=== PATIENT | female | born 1945 | race Caucasian/White ===

== ENCOUNTER 2017-08-20 14:35 | Emergency (ER) | payer OTHER ==
[~2017-08-20] VITALS: Ht 167.6 cm; Wt 67.6 kg
--- NOTE | 2017-08-20 15:59 | Diagnostic Imaging Report ---
PROCEDURE:X-RAY PELVIS, AP VIEW COMPARISON:None. INDICATIONS:FALL FINDINGS: Mild osteopenia. No acute, displaced fracture or dislocation. Evaluation of the femoral necks is limited due to positioning. Mild degenerative changes in bilateral hip and sacroiliac joints. Orthopedic hardware is partially visualized in the distal lumbar spine. Nonobstructive bowel gas pattern. Metallic clips project over the sacrum. CONCLUSION: 1. Evaluation of the femoral necks is limited due to positioning. No acute, displaced fracture or dislocation, within the limitations of the study.. Hans Nicholas M.D. Dictated by: Hans Nicholas M.D. on 08/20/2017 at 16:07 Electronically approved by: Hans Nicholas M.D. on 08/20/2017 at 16:07
--- NOTE | 2017-08-20 16:17 | Diagnostic Imaging Report ---
PROCEDURE:X-RAY LEFT HUMERUS, TWO OR MORE VIEWS COMPARISON:None. INDICATIONS:FALL, LEFT ARM PAIN FINDINGS: Acute, comminuted (at least 3 part) fracture of the proximal left humerus involving the surgical neck and likely the greater tuberosity. There is marked inferior subluxation of the humeral head, likely secondary to large effusion/hemarthrosis. No other acute, displaced fractures. Degenerative changes in the acromioclavicular joint. 1.0 cm calcified granuloma in the left upper lung. CONCLUSION: 1. Acute, comminuted (at least 3 part) fracture of the proximal left humerus involving the surgical neck and likely the greater tuberosity, with marked inferior subluxation of the humeral head, likely secondary to large effusion/hemarthrosis. Hans Nicholas M.D. Dictated by: Hans Nicholas M.D. on 08/20/2017 at 16:26 Electronically approved by: Hans Nicholas M.D. on 08/20/2017 at 16:26
[2017-08-20] MEDS ORDERED: MELOXICAM7.5 MG PO (19:40)
[2017-08-20] MEDS ORDERED: FENOFIBRATE145 MG PO (19:40)
[2017-08-20] MEDS ORDERED: HYDROCHLOROTHIA25 MG (19:40)
[2017-08-20] MEDS ORDERED: GLIMEPIRIDE2 MG PO (19:40)
[2017-08-20] MEDS ORDERED: ARICEPT5 MG PO (19:40)
[2017-08-20] MEDS ORDERED: ULTRAM 50MG50 MG PO (19:40)
[2017-08-20] MEDS ORDERED: ALLOPURINOL300 MG PO (19:40)
--- NOTE | 2017-08-20 19:48 | Diagnostic Imaging Report ---
History: Fall yesterday Comparison studies: None Technique: Axial images were obtained from the skull base to the vertex. Coronal and sagittal reconstructions obtained from the axial data. Findings: Scalp/skull: No abnormalities. No fractures, blastic or lytic lesions. Extra-axial spaces: No masses. No fluid collections. Brain sulci: Mildly prominent. Ventricles: Mild compensatory dilatation. No hydrocephalus. Parenchyma: Right posterior limb internal capsule/thalamus chronic lacunar infarct. Periventricular white matter hypodensities are mild small vessel ischemic changes. Atherosclerotic calcifications of the carotid siphons and distal vertebral arteries. No acute intracranial hemorrhage, mass or acute major vascular territorial infarct. Sellar/suprasellar region: No abnormalities Craniocervical junction: Patent foramen magnum. No Chiari one malformation. IMPRESSION: 1. No acute abnormalities. 2. Right posterior limb internal capsule/thalamus chronic lacunar infarct. Mild microvascular ischemic changes. A preliminary report was given by Neuroradiology fellow Dr. Garcia at 4:22 PM on 08/20/2017. I have reviewed the study and agree with the findings in the preliminary report. Signed by: Dr. Ping Saldivar M.D. on 08/20/2017 7:44 PM
--- NOTE | 2017-08-20 19:52 | Diagnostic Imaging Report ---
History: Fall Comparison studies: None Technique: Axial images were obtained through the cervical region.. Coronal and sagittal images reconstructed from the axial data.. Intravenous contrast: None Findings: Airway: Patent. Fractures: None. Soft tissues: No gross abnormalities. Atlantoaxial articulation: Intact. Alignment: Normal lordosis. Grade 1 degenerative retrolisthesis of C3 on C4 and C5 on C6. Cervicomedullary junction: No abnormalities. The foramen magnum is patent. Vertebrae: No infection or neoplasm. Degenerative changes: Moderate foraminal stenoses left at C3-C4 and C4-C5, bilateral moderate foraminal stenosis at C5-C6 due to facet and uncovertebral arthrosis. IMPRESSION: 1. No acute abnormalities. 2. Ligament, spinal cord and or vascular abnormalities cannot be excluded on the basis of this examination. 3. Cervical spondylosis as detailed above. A preliminary report was given by Neuroradiology fellow Dr. Garcia at 4:27 PM on 08/20/2017. I have reviewed the study and agree with the findings in the preliminary report. Signed by: Dr. Ping Saldivar M.D. on 08/20/2017 7:48 PM
[2017-08-20 21:00] VITALS: BP 183/88
== END 2017-08-20 21:31 | disposition home or self-care (01) ==
LOC: ER 14:35
DX: S42.292A Other displaced fracture of upper end of left humerus, initial encounter for closed fracture (principal); W18.11XA Fall from or off toilet without subsequent striking against object, initial encounter; Y93.89 Activity, other specified; Y92.002 Bathroom of unspecified non-institutional (private) residence as the place of occurrence of the external cause
CPT/HCPCS: 70450; 72125; 72170; 99284